=== PATIENT | female | born 1980 | race Caucasian/White ===

== ENCOUNTER 2022-03-15 07:31 | Day surgery (SDC) | payer BC, SELFPAY ==
[2022-03-15 07:50] VITALS: BMI 30.4
[2022-03-15 07:56] VITALS: BP 118/68; PULSE 75; RESP 16; TEMP 36.8; O2SAT 96
[2022-03-15 07:58] LABS: Ur HCG Qualitative* Negative (Negative)
[2022-03-15] MEDS: LACTATED RINGERS 1000 ML 1,000 ML 100 ML IV (08:05)
[2022-03-15] MEDS: SODIUM CHLORIDE 0.9 % (FLUSH) 10 ML SYRINGE IVF (08:05)
[2022-03-15 08:22] LABS: Hemoglobin* 11.7 gm/dL (12.0-16.0)
--- NOTE | 2022-03-15 09:58 | P.PCN_ITS ---
Procedure Note Time Seen by Provider: 09:58 Date Seen: 03/15/22 Date of procedure: 03/15/22 Will [facility] bill your pro fee for this procedure?: Yes Procedure: Preoperative diagnosis: Augustina is a year-old with abnormal uterine bleeding, submucosal fibroid Postoperative diagnosis: Same Procedure: 1. Hysteroscopy, Dilation and Curettage using the Truclear incisor 2. Endometrial ablation with the Ngoc. Anesthesia: Conscious sedation, paracervical block. Surgeon: Solange Solomon MD Rail Signal Worker: None Estimated blood loss: 20 mL Specimen: Endometrial curettings to pathology. Findings: Exam under anesthesia: Uterus: Retroverted position, less than 10 week sized, mobile, with no masses or nodularity palpable. Uterus sounded to 11 cm. The cervix sounded to 5.5 cm. Cavity length 5.5 cm. No adnexal masses or nodularity palpable. On hysteroscopy: 2 submucosal fibroids, 1 the lower uterine segment that was small, less than 1 cm and a 2nd in the left fundal endometrium approximately 3-4 cm in diameter. Procedure: Augustina was taken to the operating operating room more conscious sedation was found to be adequate. The patient was placed on in the dorsal lithotomy position and an exam under anesthesia was performed with findings stated above. She was then prepped and draped in a normal sterile manner. A bivalve speculum was placed in the vagina. The cervix appears nulliparous. Otherwise no ab normalities. The paracervical block was placed using 0.5% Marcaine, 5 mL was injected at the 4 and 8 o'clock positions on the cervix. The posterior lip of the cervix was grasped with a long Allis clamp. The cervix dilated to Hegar 7. The uterus sounded to 11 cm. The Truclear hysteroscope was advanced into the uterus. A diagnostic hysteroscopy was performed with normal saline as the insufflation medium. Findings are stated above. The Truclear dense-tissue incisor was then advanced through the camera. The curettage was performed with the incisor over an approximately 5 minutes. The incisor was then removed. The endometrial cavity appeared normal. Saline deficit at the end of the procedure 1230 mL. Total saline used 6690 mL. Attention was turned to performing the endometrial ablation. The hysteroscope was removed. The cervix was then dilated to Hegar 8. The Ngoc device was advanced into the uterus. The cavity check was completed and the ablation took place over 2 min. The Ngoc was removed, the hysteroscope readvanced to document ablation of the entire cavity. The hysteroscope was then removed. The Allis clamp was removed from the cervix. Nothing was needed for hemostasis. The speculum was removed from the vaginal canal. The patient tolerated the procedure well. Sponge, lap and instrument counts were correct x2 at the end of the procedure. The patient was taken to the recovery area in stable condition. Patient received 30 mg of Toradol IV and 2 gm of Ancef prior to the procedure. Surgeon: Solange Solomon MD
[2022-03-15] MEDS: CEFAZOLIN 2 GM INJ IVP (10:25)
[2022-03-15] MEDS: BUPIVACAINE 0.5% 30 ML INJECTION (10:32)
[2022-03-15 11:03] VITALS: BP 105/62; PULSE 77; RESP 16; O2SAT 95
--- NOTE | 2022-03-15 11:06 | W.ANESCHARGE ---
Anesthesia Charges Start Date/Time Anesthesia Start Date: 03/15/22 Anesthesia Start Time: 10:17 Stop Date/Time Anesthesia Stop Date: 03/15/22 Anesthesia Stop Time: 11:04 Summary Emergency: No
[2022-03-15 11:15] VITALS: BP 106/65; PULSE 60; RESP 16; O2SAT 97
[2022-03-15 11:30] VITALS: BP 117/68; PULSE 57; RESP 18; O2SAT 96
--- NOTE | 2022-03-15 11:46 | W.ANESCHARGE ---
Anesthesia Charges Start Date/Time Anesthesia Start Date: 03/15/22 Anesthesia Start Time: 10:17 Stop Date/Time Anesthesia Stop Date: 03/15/22 Anesthesia Stop Time: 11:04 Summary Emergency: No
== END 2022-03-15 12:00 | disposition home or self-care (01) ==
PROVIDERS: Visit Provider Obstetrics & Gynecology
PROC: 0UF98ZZ Fragmentation in Uterus, Via Natural or Artificial Opening Endoscopic (ICD-10-PCS; CPT 58563; principal; 2022-03-15 08:30)
DX: N93.8 Other specified abnormal uterine and vaginal bleeding (principal); D25.0 Submucous leiomyoma of uterus
CPT/HCPCS: 58563; 00952; 36415; 81025; 85018; 88305; J0690; J1100; J1885; J2250; J2405; J2704; J3010; J3490; J7120

== ENCOUNTER 2023-05-03 07:00 | Outpatient (CLI) | payer BC, SELFPAY ==
--- OUTSIDE RECORDS SUMMARY | 2023-05-03 07:02 | XMS_ITS | Clinical Summary ---
Author Name Unknown Organization [facility] Address [place], [place] [address] Care Team Providers Care Lime Kiln And Recausticizing Operator Name Role Phone Pcp, No Primary Care Provider Unavailabl e Social History Tobacco Use Types Packs/Day Years Used Date Smoking Tobacco: Never Assessed Sex and Gender Information Value Date Recorded Sex Assigned at Not on file Gender Identity Not on file Sexual Orientation Not on file Plan of Treatment Not on file Care Teams Lime Kiln And Recausticizing Operator Relationship Specialty Start Date End Date Pcp, No . PCP - General 02/27/18
--- NOTE | 2023-05-03 07:15 | CRLHL7_ITS ---
For Patients: As a result of the Century Cures Act, medical imaging exams and procedure reports are released immediately into your electronic medical record. You may view this report before your referring provider. If you have questions, please contact your health care provider. INDICATION: Abnormal uterine bleed, hx fibroids s/p endo ablation COMPARISON: 07/22/2021 TECHNIQUE: 2D person scale and color Doppler images were acquired of the pelvis using a transvaginal approach. FINDINGS: Right anterior uterine fibroid is present measuring 5.1 x 4.8 x 5.0 cm which has increased in size compared to the prior study when it measured 2.5 cm. This displaces the endometrium. A smaller fibroid is present within the uterine fundal myometrium measuring 1.3 x 0.8 x 1.3 cm. Uterus measures 9.9 cm in length by 5.7 cm in AP diameter by 6.8 cm in transverse dimension. The endometrial thickness is 5 millimeters. The right ovary measures 3.3 x 2.8 x 1.9 cm in size and the left ovary measures 3.4 x 1.6 x 1.8 cm. The ovaries demonstrate normal arterial and venous blood flow on color Doppler analysis. There are no suspicious fluid collections within the cul-de-sac. IMPRESSION: Increased size of the right anterior uterine fibroid now measuring 5.1 cm with associated displacement of the endometrium. The endometrial thickness is 5 millimeters. Dictated by Jorge Verde MD @ 05/03/2023 1:37:49 PM (Electronically Signed)
== END 2023-05-03 07:01 | disposition home or self-care (01) ==
LOC: US 07:01
PROVIDERS: Visit Provider Obstetrics & Gynecology
DX: N92.0 Excessive and frequent menstruation with regular cycle (principal); D25.9 Leiomyoma of uterus, unspecified
CPT/HCPCS: 76830

== ENCOUNTER 2023-07-10 14:35 | Inpatient (IN) | payer BC, SELFPAY ==
[2023-07-10] VITALS (22 sets, daily range): BP systolic 94–147; BP diastolic 56–94; PULSE 65–82; RESP 12–16; TEMP 36.4–36.7; O2SAT 95–100; BMI 34.7
--- OUTSIDE RECORDS SUMMARY | 2023-07-10 10:51 | XMS_ITS | Clinical Summary ---
Author Name Unknown Organization [facility] Address [place], [place] [address] Care Team Providers Care Scientific Informatics Leader Name Role Phone Pcp, No Primary Care Provider Unavailabl e Social History Tobacco Use Types Packs/Day Years Used Date Smoking Tobacco: Never Assessed Sex and Gender Information Value Date Recorded Sex Assigned at Not on file Gender Identity Not on file Sexual Orientation Not on file Plan of Treatment Not on file Care Teams Scientific Informatics Leader Relationship Specialty Start Date End Date Pcp, No . PCP - General 02/27/18
[2023-07-10] MEDS: SODIUM CHLORIDE 0.9 % (FLUSH) 10 ML SYRINGE IVF (11:27)
[2023-07-10] MEDS: LACTATED RINGERS 1000 ML 1,000 ML 100 ML IV ×2 (11:27→14:54)
--- NOTE | 2023-07-10 11:29 | W.PM.H&PU ---
History & Physical Update History & Physical Update H&P Reviewed and patient assessed: No changes noted
--- NOTE | 2023-07-10 11:30 | P.PCN_ITS ---
Procedure Note Time Seen by Provider: 14:36 Date Seen: 07/10/23 Date of procedure: 07/10/23 Will [facility] bill your pro fee for this procedure?: Yes Procedure: Preoperative diagnosis: 43-year-old 2 para 2 with uterine fibroids and heavy menstrual bleeding. Postoperative diagnosis: Same Procedure: Attempted Total laparoscopic hysterectomy converted to total abdominal hysterectomy, bilateral salpingectomy. Anesthesia: General endotracheal, local and TAPS block. Surgeon: Solange Solomon MD Assist: Molly Montes MD Estimated blood loss: 100 mL. IV Fluid: 1200 mL Urine output: 100 mL Drains: Garcia to gravity Specimen: Uterus and bilateral fallopian tubes to pathology. Findings: On exam under anesthesia: The uterus was retroverted approximately 12-14 week size, mobile without nodularity or masses palpable. Adnexa without mass or fullness palpable. On laparoscopy: the uterus filled the posterior cul-de-sac and due to limited mobility of the uterus visualization with laparoscopy was suboptimal and it was decided to convert to abdominal hysterectomy for patient safety. Appendix, liver and gallbladder all appeared normal. On cystoscopy there was noted to be urine jets through both ureteral orifices. The uterus weighed 227 g in the operating room. Procedure: Augustina was taken to the operating room where general anesthetic was found to be adequate. She was placed in the dorsal lithotomy position and an exam under anesthesia was performed with findings stated above. She was then prepped and draped in a normal sterile manner. A Garcia catheter was placed. A bivalve speculum was placed in the vaginal canal. A long Allis clamp was placed on the anterior lip of the cervix, in the uterus sounded to 12cm. A large VCare uterine manipulator was then placed. The Allis clamp and speculum were removed from the cervix. Attention was then turned to performing the laparoscopic portion of the procedure. All incisions were infiltrated with 0.5% Marcaine prior to incising the skin. A vertical, infraumbilical 1 cm incision was made. An 11 mm trocar was then placed under direct visualization. The abdomen was then insufflated with CO2 gas to a pressure of 15 mm of mercury. Two,, pelvic ports were then placed approximately 3-4 finger breaths medial to the ischial crests. The trocar in the RLQ = 5mm, LLQ = 11mm. These were placed under direct visualization. Attention was then turned to performing the hysterectomy. The left fallopian tube was grasped and removed with sequential pedicles using the dissecting, PowerSeal blunt tip dissecting forceps. The right fallopian tube was removed in a similar manner. The right of the hysterectomy was performed using the PowerSeal dissecting forceps. The 1st pedicles were starting with the broad ligament that was cauterized and and bisected. In sequence show pedicles were formed to divide the utero-ovarian ligament. Then sequential pedicles were made through the broad ligament. The posterior leaf of the broad ligament was then divided and sequential pedicles carried down to the level of the uterine vessels. The anterior leaf of the broad ligament was then divided down to the level of the anterior aspect of the VCare cup and a bladder flap created. The uterine vessels were then skeletonized. The uterine vessels were then cauterized. The left side with a hysterectomy was attempted but there was suboptimal visualization using the laparoscope so the decision was made to convert to a total abdominal hysterectomy. The left lower quadrant fascia was reapproximated using the Tay -Thomasyaneth fascial closure device. All trocars were removed under direct visualization. The CO2 gas was allowed to escape the infraumbilical port prior to its removal. The fascia in the infraumbilical incision was reapproximated using an 0 Vicryl on a UR 6 needle. All the incisions were reapproximated using 4-0 Monocryl suture in a running subcuticular manner. Exofin skin adhesive was applied. Attention was then turned to performing the abdominal hysterectomy. A Pfannenstiel skin incision was made with a scalpel. This incision was carried down to the underlying layer of fascia with the Bovie. The fascia was incised i n the midline and the incision extended laterally. The superior and inferior aspects of the fascial incision were grasped with Francisco clamps and the underlying rectus muscles dissected off sharply. The rectus muscles were in the midline. The underlying peritoneum was identified and entered bluntly. The peritoneal incision was extended superiorly and inferiorly with good visualization of the bladder. The patient was placed in some mild Trendelenburg positioning. The bowels were packed cephalad using a large moistened laparotomy sponge. The Lux O retractor was placed in the incision. This provided excellent visualization of the pelvis. The pelvis was inspected with the findings noted above. [place] clamps were placed at the cornua bilaterally for traction. Both ure ters were identified along their courses within the pelvic sidewall by palpation, patient patient body habitus made limited visualization. The round ligament and utero-ovarian ligament had already been divided during the laparoscopic portion of the case. The uterine vessels were crossclamped with 2 Saul clamps and divided. They were suture ligated with 0 Vicryl suture and Saul transfixed. Attention was then turned to the left side. The left round ligament was clamped with 2 Francisco clamps, transected, and suture ligated with 0-Vicryl. The anterior leaf of the broad ligament was opened from the left side to the midline. The bladder flap was then created bluntly. The bladder was further pushed caudally with a sponge stick. The left fallopian tube was clamped across its attachments serially, transected, and suture ligated with 0-Vicryl until the tube was transected at the cornua. The left ovarian ligament was clamped with 2 Saul clamps, transected, and doubly suture ligated with 0-Vicryl. Hemostasis was visualized. The left uterine vessels were skeletonized and then clamped across with Saul clamps, transected, and suture ligated. The remaining cardinal and uterosacral ligament attachments on both sides were clamped with straight Saul clamps adjacent to the lower uterine segment and cervix, transected and suture ligated with 0 Vicryl. Excellent hemostasis was obtained. Two Saul clamps were placed across the vaginal cuff angles. The uterus with attached cervix was then transected and passed off the field. The vaginal cuff angles were fixed with Saul stitches of 0 Vicryl. The intervening vaginal cuff was closed with [id number] sutures of 0 Vicryl. The abdomen and pelvis were then copiously irrigated. Small bleeding vessels were isolated with DeBakey clamps and cauterized for hemostasis. All laparotomy sponges and instruments were then removed The subfascial tissues were carefully inspected and hemostasis assured. The fascia was re-approximated in a running fashion with a looped 0 Maxon suture. The subcutaneous tissues were copiously irrigated and hemostasis assured. The subcutaneous adipose layer was re-approximated in 1 layer 3-0 plain gut interrupted sutures. The skin was closed in a subcuticular fashion with 4-0 Monocryl. Exofin skin adhesive and a Mepilex dressing were then applied The patient tolerated the procedure well. Sponge, lap, needle, instrument counts were reported as correct x2. The patient was taken to recovery room awake and in stable condition. The patient received 2 gm IV ancef prior to the start of the procedure.
[2023-07-10 11:37] LABS: Ur HCG Qualitative* Negative (Negative)
[2023-07-10 11:39] LABS: Hemoglobin* 13.4 gm/dL (12.0-16.0)
[2023-07-10] MEDS: CEFAZOLIN 2 GM INJ IVP (12:10)
[2023-07-10] MEDS: BUPIVACAINE 0.5% 30 ML INJECTION (12:45)
--- NOTE | 2023-07-10 13:27 | P.NB_ITS ---
Nerve Block Nerve Block Time Seen by Provider: 12:08 Date Seen: 07/10/23 Type of block requested by surgeon for post-operative analgesia: TAP Side: bilateral Time out performed: Yes Verification of patient name: Yes Verification of date of : Yes Site marking: site marked Name of person performing procedure: Colin Continuous monitoring Was continuous monitoring of O2 sat, B/P, traffic monitor specialist, recorded every 15 minutes?: Yes Procedure Checklist: sterile prep, needles and gloves Ultrasound guided. Images saved: Yes Medications given in 5ml increments after negative aspiration: Marcaine %: 0.25 mL: 30 Needle gauge: 20 and Exparel mL: 10 Patient tolerated procedure well: Yes Additional comments: Needle noted between internal oblique and transversus abdominus. Local spread visualized Block Charges Block Charge (with Pro Fee): TAP Bilateral Use of Ultrasound Machine for Block: Yes- US Guidance/pain block
--- NOTE | 2023-07-10 13:28 | W.ANESCHARGE ---
Anesthesia Charges Start Date/Time Anesthesia Start Date: 07/10/23 Anesthesia Start Time: 11:58 Stop Date/Time Anesthesia Stop Date: 07/10/23 Anesthesia Stop Time: 14:45
--- NOTE | 2023-07-10 14:37 | P.GYNPRC_ITS ---
Procedure Note Date of procedure: 07/10/23 Will [facility] bill your pro fee for this procedure?: Yes Pre-op diagnosis: Heavy menstrual bleeding. Myomatous uterus. Post-op diagnosis: Same. Procedure: Laparoscopy with bilateral salpingectomies and attempted laparoscopic hysterectomy, converted to open laparotomy with total abdominal hysterectomy. Anesthesia: GETA Complications: None. Surgeon: Pushpa Solomon MD Farm Equipment Technician: Molly oMntes Pathology: specimen obtained, sent to pathology Condition: stable Disposition: PACU Findings: See operative report by Dr. Solomon. Procedure Description: Please see the operative report by Dr. Solomon for full details of the pr ocedure. I was asked to assist. I was scrubbed in for the entire procedure until closure of the abdominal incisions. I provided assistance with laparoscopic port placement, visualization and retraction, and with the salpingectomies and attempted laparoscopic hysterectomy, as well as the laparotomy and total abdominal hysterectomy the right side, including hemostasis and closure of the vaginal cuff and fascia.
--- NOTE | 2023-07-10 14:57 | W.ANESCHARGE ---
Anesthesia Charges Start Date/Time Anesthesia Start Date: 07/10/23 Anesthesia Start Time: 11:58 Stop Date/Time Anesthesia Stop Date: 07/10/23 Anesthesia Stop Time: 14:45
[2023-07-10] MEDS: fentaNYL 100 MCG/2 ML inj 50 MCG IVP ×2 (15:11→15:21)
[2023-07-10] MEDS: KETOROLAC 30 MG/ML inj IVP ×2 (16:28→22:29)
[2023-07-10] MEDS: ACETAMINOPHEN 325 MG TABLET 650 MG PO (19:00)
[2023-07-11] MEDS: ACETAMINOPHEN 325 MG TABLET 650 MG PO ×4 (01:30→19:03)
[2023-07-11 01:34] VITALS: BP 132/77; PULSE 75; RESP 16; TEMP 36.7; O2SAT 96
[2023-07-11] MEDS: KETOROLAC 30 MG/ML inj IVP ×4 (04:41→22:32)
[2023-07-11 04:46] VITALS: BP 114/71; PULSE 70; RESP 16; TEMP 37.6; O2SAT 94
[2023-07-11 05:40] LABS: Hemoglobin* 12.4 gm/dL (12.0-16.0)
[2023-07-11 08:30] VITALS: BP 122/75; PULSE 70; RESP 16; TEMP 36.9; O2SAT 97
--- NOTE | 2023-07-11 10:07 | P.GYNPN_ITS ---
CUSTOMER ENGAGEMENT SPECIALIST - A/P Postoperative Procedures: Procedures Operation Date: 07/10/23 12:35 Actual Procedure Side Surgeon p Attempted Total Laparoscopic Hysterectomy,Toatal abdominal Hysterectomy, Bilateral Salpingectomy Solange Solomon MD Postoperative day: 1 Postoperative status: doing well Postoperative plan: routine post-op care and ambulate (Reviewed we will plan to ambulate some more in the unit. ) Time Spent With Patient Time: Total time spent is greater than 50% in coordination of care (as documented) at patient's floor/unit and/or counseling patient: Time with patient: 25 - 35 minutes CUSTOMER ENGAGEMENT SPECIALIST- PN:Subj Post-Op Subjective Date Seen: 07/11/23 Post Operative Details: Post-operative day number 1: status post failed laparoscopic surgery, total abdominal hysterectomy, bilateral salpingectomy, cystoscopy Subjective: patient reports feeling better, pain is well controlled, voiding without difficulty, patient is tolerating oral intake and passing flatus CUSTOMER ENGAGEMENT SPECIALIST-PN: Obj Exam Physical Exam: Vital signs: Temp Pulse Resp BP Pulse Ox O2 Del Method O2 Flow Rate 99.6 F 70 16 114/71 94 Room Air 6 07/11/23 04:46 07/11/23 08:30 07/11/23 08:30 07/11/23 04:46 07/11/23 04:46 07/11/23 04:46 07/10/23 14:50 FiO2 100 07/10/23 14:50 Narrative: VITAL SIGNS: As noted above. GENERAL APPEARANCE: Alert, cooperative female in no acute distress. MOOD & AFFECT: Normal. ABDOMEN: Soft, no rebound, no guarding appropriately tender, positive bowel sounds, incision covered by dressing, one small spot with blood stain this was demarcated by nurse and will review in the afternoon for removal. : Minimal spotting EXTREMITIES: Nonedematous. Well perfused. Nontender. Urinary Catheter Management: Urethral: Cath placed during this visit: yes, but has since been removed by the nurse Reason for continuing: surgical procedure Insertion date: 07/10/23 Insertion time: 12:34 Removal date: 07/11/23 Removal time: 07:00 CUSTOMER ENGAGEMENT SPECIALIST - PN: Obj Data Labs Labs: Laboratory Results - last 24 hr 07/10/23 07/11/23 11:23 05:30 Hgb 13.4 12.4 Urine HCG, Qual Negative Blood Type O Positive Antibody Screen NEGATIVE
[2023-07-11 14:00] VITALS: BP 112/73; PULSE 68; RESP 18; TEMP 37; O2SAT 97
[2023-07-11 17:01] VITALS: PULSE 69; RESP 18
[2023-07-11 23:22] VITALS: BP 127/83; PULSE 66; RESP 18; TEMP 36.8; O2SAT 96
[2023-07-12 00:49] VITALS: BP 120/72; PULSE 76; RESP 18; TEMP 36.7; O2SAT 94
[2023-07-12] MEDS: ACETAMINOPHEN 325 MG TABLET 650 MG PO ×2 (00:51→07:23)
[2023-07-12] MEDS: IBUPROFEN 600 MG TABLET PO ×2 (02:46→08:52)
[2023-07-12] MEDS: SIMETHICONE 80 MG TAB.CHEW 160 MG PO (03:39)
[2023-07-12 05:22] VITALS: BP 119/80; PULSE 62; RESP 16; TEMP 36.6; O2SAT 95
--- NOTE | 2023-07-12 08:20 | P.DS_ITS ---
DS: Providers Provider Time Seen by Provider: 08:20 Date Seen: 07/12/23 Date of admission: 07/10/23 14:35 Primary care physician: Not a Local Provider Admitting Clinician: Solange Solomon MD Attending Physician on discharge: Solange Solomon MD Date of Discharge: 07/12/23 DS: Diagnosis Discharge Diagnosis (1) Status post abdominal hysterectomy: Status: Acute Problem details: with bilateral salpingectomy. (2) Uterine leiomyoma: Status: Acute SUPERVISOR TWISTING DEPARTMENT-Discharge Summary Hospital Course Hospital Course Narrative: Hospital Course: Augustina was admitted to the hospital on 07/10/2023 for a scheduled hysterectomy. Her surgery was complicated by conversion of total laparoscopic hysterectomy to total abdominal hysterectomy due to large size of her uterus secondary to fibroids. Her postoperative course was also uncomplicated. By postoperative day 2, she was tolerating a regular diet, ambulating without difficulty, passing flatus and pain was well controlled with oral pain medications. She would like to be discharged home today. Labs: Preoperative hemoglobin 13.4, postoperative hemoglobin 12.4. Objective: General: Alert and oriented x3. Pleasant, woman in no acute distress. Vital signs: See EMR. Heart: Regular rate and rhythm without gallop, rub or murmur. Chest: Clear to auscultation bilaterally. Abdomen: Soft, nontender, nondistended with normal bowel sounds throughout. No CVA or flank tenderness. Incision(s): Clean, dry and intact w/ sutures and skin adhesive. Pelvic: Minimal vaginal bleeding, remainder of pelvic exam deferred. Extremities: No pain, edema, cyanosis or clubbing. Assessment: 43-year-old postoperative day 2 from a attempted total laparoscopic hysterectomy converted to total abdominal hysterectomy, bilateral salpingectomy doing well. Plan: 1. Discharge home today. 2. Activity restrictions reviewed with the patient. 3. Return to clinic to see Dr. Solomon for a postoperative visit in 2-3 weeks. Time Spent with Patient Time attestation: Total time spent providing and/or coordinating discharge services: SUPERVISOR TWISTING DEPARTMENT - Exam Physical Exam: Vital signs: Temp Pulse Resp BP Pulse Ox O2 Del Method O2 Flow Rate 98 F 62 16 119/80 95 Room Air 6 07/12/23 05:22 07/12/23 05:22 07/12/23 05:22 07/12/23 05:22 07/12/23 05:22 07/12/23 05:22 07/10/23 14:50 FiO2 100 07/10/23 14:50 SUPERVISOR TWISTING DEPARTMENT - DS: Data Procedures Procedures: Procedures Operation Date: 07/10/23 12:35 Actual Procedure Side Surgeon p Attempted Total Laparoscopic Hysterectomy,Toatal abdominal Hysterectomy, Bilateral Salpingectomy Solange Solomon MD Discharge Plan Discharge Disposition: Home, Self-Care Date of Admission: 07/10/23 14:35 Primary Care Provider: Provider,Not a Local Condition: Stable Anticipated Discharge Date/Time: 07/12/23 08:23 Discharge Medications: New docusate sodium 100 mg Capsule 100 mg PO BID PRN (Reason: Constipation) Qty: 100 0RF ibuprofen 600 mg Tablet 600 mg PO Q6H Qty: 30 0RF oxycodone 5 mg Tablet 5 mg PO Q4H PRN (Reason: Moderate Pain) Qty: 21 0RF Continued valacyclovir 500 mg tablet 500 mg PO PRN PRN Discharge Orders: Discharge Order (Routine); Ordered 07/12/23 Ordered By: Solange Solomon Patient Education: Hysterectomy (DC) Additional Instructions: ACTIVITY RESTRICTIONS: Nothing vaginally for 6 weeks: no tampons/intercourse No driving while taking narcotic pain medication during the day. Lifting restriction: Maximum of 20 pounds for 6 weeks. High impact or core exercises: 3 weeks. Submerge the incisions in water (bath/pool/cabral): 2 weeks. Off of work/school for a minimum of 6 weeks NO RESTRICTIONS for: Walking Going up/down stairs Showering Being a passenger in a motorized vehicle SYMPTOMS TO REPORT TO YOUR DOCTOR: Bleeding that is red, like a moderate period Passing clots larger than the size of a golf ball Pain not relieved by prescribed medication Fever above 100.4 degrees Fahrenheit A foul vaginal odor Decrease in urination or painful, frequent urinating Chest pain Shortness of breath Tenderness or pain with redness and/swelling in the calf(s) of your leg Follow-up Appointments: 1. [facility] in 2-3 weeks for an incision check. 2. A 6 week postop visit to verify that the vaginal cuff is well-healed. Discharge Diet: Regular Follow Up Appointments: Provider,Not a Local [Primary Care Provider] - Solange Solomon MD [Staff Physician] - Forms: MyHealth Info Instructions
[2023-07-12 08:42] VITALS: BP 124/76; PULSE 71; RESP 16; TEMP 36.7; O2SAT 96
== END 2023-07-12 09:50 | disposition home or self-care (01) | DRG 513 ==
LOC: OR 07-11 09:22 → OB 07-11 09:22
PROVIDERS: Admitting Provider Obstetrics & Gynecology; Visit Provider Obstetrics & Gynecology
PROC: 0UT94ZZ Resection of Uterus, Percutaneous Endoscopic Approach (ICD-10-PCS; principal; 2023-07-10 12:30)
DX: N92.0 Excessive and frequent menstruation with regular cycle (principal); G89.18 Other acute postprocedural pain; D25.9 Leiomyoma of uterus, unspecified
CPT/HCPCS: 36415; 64488; 76942; 81025; 840; 85018; 86850; 86900; 86901; 88309; 88342; A9270; C9290; J0665; J0690; J1100; J1200; J1630; J1885; J2405; J2704; J3010; J3475; J3490; J7120

== ENCOUNTER 2023-09-14 13:57 | Outpatient (CLI) | payer BC, SELFPAY ==
--- OUTSIDE RECORDS SUMMARY | 2023-09-14 13:59 | XMS_ITS | Clinical Summary ---
Author Organization [facility] Address [place], [place] [address] Care Team Providers Care Interior Plant Caretaker Name Role Phone Pcp, No Primary Care Provider Unavailabl e Encounters Date Type Department Care Team Description 07/10/2023 Lab Requisition [facility] [phone] Solange Solomon MD from Last 3 Months Social History Tobacco Use Types Packs/Day Years Used Date Smoking Tobacco: Never Assessed Sex and Gender Information Value Date Recorded Sex Assigned at Not on file Gender Identity Not on file Sexual Orientation Not on file Plan of Treatment Not on file Procedures Procedure Name Priority Date/Time Associated Diagnosis Comments PATH TISSUE EXAM Routine 07/10/2023 1:59 PM CDT LAB TRACKING EVENT Routine 07/10/2023 12 :00 PM CDT from Last 3 Months Results * PATH TISSUE EXAM (07/10/2023 1:59 PM CDT) Case Report Pathology Report ?Case: [id number] ? Authorizing Provider: ??Solange Solomon ?Collected: ? 07/10/2023 1359 ? MD Pratima ? Ordering Location: ? [facility] ?Received: ?07/10/2023 2118 ? Pathologist: ? Niki Montilla MD ? Specimen: ?Uterus,cervix,bi lateral fallopian tubes (no ovaries) ? 07/13/2023 4:04 PM CDT [facility] Final Diagnosis A) UTERUS WITH CERVIX AND FALLOPIAN TUBES, TOTAL HYSTERECTOMY WITH BILATERAL SALPINGECTOMY: 1. Cervix (entirely submitted): ?a. Benign cervical mucosa with reactive changes ?b. Negative for glandular neoplasia, squamous intraepithelial lesion, and invasive carcinoma 2. Endometrium: Inactive 3. Myometrium: Leiomyomas (intramural and submucosal) 4. Uterine serosa: Adhesions 5. Fallopian tubes: No significant histologic abnormality 6. Uterine weight: 228 grams 7. Negative for malignancy 07/13/2023 4:04 PM CDT [facility] Clinical Information Menorrhagia and uterine fibroids. NIL on recent Pap with negative HR-HPV. Remote history of abnormal Pap and cervical dysplasia. Previous pap ASCUS ([id number]; 11/04/19) with positive HR-HPV. 07/13/2023 4:04 PM CDT [facility] Gross Description A) Received in formalin, labeled with the patient's name and uterus cervix bilateral fallopian tubes, is a 228 g (uterus and cervix weight only), 10.5 x 6 x 6.5 cm uterus with attached cervix and two detached fallopian tube segments. ??There are patchy thin membranous and mildly hemorrhagic uterine serosal adhesions constituting 5% of the surface area. ??The cervix is rubbery and cylindrical, 3.8 cm long and 3.3 cm in diameter. ??It has smooth pink, focally erythematous ectocervical mucosa surrounded by a centrally located 0.7 cm os. ??The paracervical soft tissue is inked blue and the anterior and black on the posterior. ??Upon opening the squamocolumnar junction is well-demarcated and the endocervical mucosa is glistening parish and finely corrugated. ??No lesion is identified. The uterine cavity has a smooth pink 0.1-0.2 cm thick lining. ??No endometrial lesion is seen. ??Sectioning reveals 2 nodules which are intramural and submucosal measuring 1.3 and 4.3 cm greatest dimension. ??Both nodules are well-demarcated and have white-parish whorled and trabeculated cut surfaces. ??No hemorrhage or necrosis is seen. The 2 detached, unoriented fallopian tubes are purple-parish and fimbriated measuring 3.3 and 5 cm in length by 0.8 cm average diameter. ??The serosal surfaces are smooth. ??Sectioning exhibits stellate lumina with glistening parish mucosal linings. ??No lesion is seen. Descriptive Catalog Librarian sections: 1. ??Serosal adhesions 2-7. ??Anterior ectocervix 9-12-3 o'clock 9-13. ??Posterior cervix 3-6-9 o'clock 14-17. ??Anterior endocervix 9-12-3 o'clock; yellow ink on ectocervical edges 18-22. ??Posterior endocervix 3-6-9 o'clock; yellow ink on ectocervical edges 23. ??Anterior endomyometrium with serosa 24. ??Posterior endomyometrium with serosa 25. ??2 nodules 26-29. ??2 fallopian tubes with entire fimbria DPL 07/11/2023 07/13/2023 4:04 PM CDT [facility] Microscopic Description The final diagnosis is based on microscopic examination of appropriate sections of all specimens. A p16 immunostain was performed on block A11 to assist in evaluation. The p16 immunostain is negative for diffuse expression. 07/13/2023 4:04 PM CDT [facility] Additional Information Interpreted at [facility] - [address] [facility] [address], [place] [address] 07/13/2023 4:04 PM CDT [facility] Other (Uterus,cervix,bi lateral fallopian tubes (no ovaries)) 07/10/2023 1:59 PM CDT 07/10/2023 9:18 PM CDT Solange Solomon MD PATHOLOGY/ CYTOLOGY [facility] [address] [place] [id number], [place] * LAB TRACKING EVENT (07/10/2023 12:00 PM CDT) Other (Other) Client Collect / Unknown 07/10/2023 12:00 PM CDT 07/10/2023 8:47 PM CDT Solange Solomon MD LAB BILL O NLY [facility] [address] [place] [id number], [place] from Last 3 Months Care Teams Interior Plant Caretaker Relationship Specialty Start Date End Date Pcp, No . PCP - General 02/27/18
--- NOTE | 2023-09-14 14:00 | CRLHL7_ITS ---
For Patients: As a result of the Century Cures Act, medical imaging exams and procedure reports are released immediately into your electronic medical record. You may view this report before your referring provider. If you have questions, please contact your health care provider. BILATERAL SCREENING MAMMOGRAM WITH COMPUTER-AIDED DETECTION AND TOMOSYNTHESIS TECHNIQUE: CC and MLO views were obtained. These mammographic images have been obtained using full-field digital technique. These mammographic images were interpreted with the benefit of computer-aided detection. Breast Tomosynthesis was used in this interpretation. COMPARISON FILM: Baseline. FINDINGS: The breasts are heterogeneously dense, which may obscure small masses. IMPRESSION: There is no radiographic evidence for malignancy. ASSESSMENT: BI-RADS Category 1: Negative RECOMMENDATION: Routine screening mammogram in 1 year. A lay language report of this examination will be provided to the patient. Jorge Verde M.D. Diagnostic Radiologist [email or web address] SP/Dictated by: Jorge Verde MD @ 09/24/2023 10:41:00 AM (Electronically Signed)
== END 2023-09-14 13:58 | disposition home or self-care (01) ==
LOC: MAMMO 13:58
PROVIDERS: Visit Provider Obstetrics & Gynecology
DX: Z12.31 Encounter for screening mammogram for malignant neoplasm of breast (principal); R92.2 Inconclusive mammogram
CPT/HCPCS: 77063; 77067

== ENCOUNTER 2024-10-08 08:06 | Outpatient (CLI) | payer BC, SELFPAY ==
--- NOTE | 2024-10-08 08:15 | CRLHL7_ITS ---
For Patients: As a result of the Century Cures Act, medical imaging exams and procedure reports are released immediately into your electronic medical record. You may view this report before your referring provider. If you have questions, please contact your health care provider. INDICATION: BILATERAL SCREENING MAMMOGRAM, ASYMPTOMATIC 44 Y/O FEMALE COMPARISON: 09/14/2023 TECHNIQUE: Digital mammogram in CC and MLO projections including computer-aided detection (CAD) and tomosynthesis. BREAST COMPOSITION: There are scattered areas of fibroglandular density. FINDINGS: No suspicious findings. ASSESSMENT: BI-RADS 1 Negative RECOMMENDATION: Annual screening mammogram. A lay language report of this examination will be provided to the patient. Dictated by: Jorge Verde MD @ 10/09/2024 12:00:54 (Electronically Signed)
== END 2024-10-08 08:07 | disposition home or self-care (01) ==
LOC: MAMMO 08:06
PROVIDERS: Visit Provider Obstetrics & Gynecology
DX: Z12.31 Encounter for screening mammogram for malignant neoplasm of breast (principal)
CPT/HCPCS: 77063; 77067